=== PATIENT | female | born 1965 | race Caucasian/White ===

== ENCOUNTER → 2018-07-23 16:08 | Outpatient (CLI) | payer BC, SELFPAY ==
--- NOTE | 2018-07-23 16:29 | RAD_ITS ---
STUDY: X-RAY - LEFT KNEE REASON FOR EXAM: Female, 52 years old. Left knee pain. TECHNIQUE: 3 view(s) of the knee. COMPARISON: None. FINDINGS: Normal visualized distal femur. Normal visualized proximal tibia and fibula. Normal proximal tibiofibular articulation. There is no acute fracture, dislocation or destructive osseous pathology. There is mild degenerative arthrosis of the medial femorotibial compartment. Normal lateral femorotibial compartment. There is severe degenerative arthrosis of the patellofemoral articulation. There is no demonstrated joint effusion. The soft tissue structures are unremarkable. RAD/Knee 3 Views IMPRESSION: Degenerative arthrosis. Electronically Signed: Serafin Donnelly DO at 22:15 EDT Tel [phone], Service support ,
--- NOTE | 2018-07-23 16:30 | RAD_ITS ---
STUDY: X-RAY - PELVIS REASON FOR EXAM: Female, 52 years old. Left hip pain TECHNIQUE: 2 views of the pelvis. COMPARISON: None. FINDINGS: There is a non-specific bowel gas pattern. Normal visualized soft tissue structures. Normal bilateral iliac wings, sacroiliac joints and visualized sacrum. Normal visualized bilateral superior and inferior pubic rami. Normal pubic symphysis. Normal ischial tuberosities. Normal visualized right femoral head. Normal right acetabulum. Normal right hip joint. There is a left hip prosthesis in place. No imaging evidence of loosening. RAD/Pelvis 1 or 2 Views IMPRESSION: No acute bony pathology of the pelvis. Electronically Signed: Elier Nicole DO at 23:57 EDT Tel [phone], Service support ,
== END ==
PROVIDERS: Referring Provider Orthopaedic Surgery; Visit Provider Orthopaedic Surgery
DX: M25.562 Pain in left knee (principal); Z96.642 Presence of left artificial hip joint
CPT/HCPCS: 72170; 73562